=== PATIENT | female | born 1995 | race Caucasian/White ===

== ENCOUNTER 2016-04-20 20:51 | Emergency (ER) | payer OTHER ==
[~2016-04-20] VITALS: Ht 152.4 cm; Wt 50.5 kg
[~2016-04-20 20:51] MED LIST: CARA1TAB2 PO; DICY1TAB26 PO; OMEP20CA5 PO; Z.0.NO CURRENT MEDS; ZITH250T PO
[2016-04-20 21:08] VITALS: BP 112/71; PULSE 67; RESP 16; TEMP 98.6; O2SAT 100
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
== END 2016-04-20 23:04 | disposition home or self-care (01) ==
LOC: PHED 20:51 → PHEFT 23:04
DX: R51 Headache (principal); V13.4XXA Pedal cycle driver injured in collision with car, pick-up truck or van in traffic accident, initial encounter; Y93.55 Activity, bike riding; Y92.410 Unspecified street and highway as the place of occurrence of the external cause
CPT/HCPCS: 70450